=== PATIENT | female | born 1955 | race Caucasian/White ===

== ENCOUNTER 2019-05-23 21:08 | Emergency (ER) | payer BC ==
[~2019-05-23] VITALS: Ht 160 cm; Wt 82.6 kg
[2019-05-23 21:18] VITALS: BP 140/80
--- NOTE | 2019-05-23 21:18 | NUR ---
ED Nurse Note: pt walked in to ED C/O hitting her left arm to a coffee table. laceration noted. No active bleeding present. Pain 5/10. pt is alert x4.
--- NOTE | 2019-05-23 21:41 | Emergency Room Report ---
History of Present Illness General Chief Complaint: Laceration Source: Patient Present Illness HPI This is a 63-year-old female who is right-hand dominant. She presents with chief complaint of left arm laceration. At 3 AM last night, she went to the bathroom and misjudged the bed and sat down. She ended up falling and hitting her left arm on the coffee table. Sustained abrasion and a laceration to left elbow area. Some mild pain. No nausea no vomiting. No other injury. Did not pass out. Tetanus shots was 3 months ago. Allergies: Coded Allergies: CODEINE (Verified Allergy, Unknown, 05/23/19) Patient History Past Medical History: see triage record, old chart reviewed Past Surgical History: other Pertinent Family History: none Social History: Reports: smoking Last Menstrual Period: 15 YEARS Now: No Immunizations: UTD Reviewed Nursing Documentation: PMH: Agreed; PSxH: Agreed Nursing Documentation-PMH Past Medical History: No History, Except For Review of Systems Eye: Denies: eye pain, blurred vision ENT: Denies: ear pain, nose congestion, throat swelling Respiratory: Denies: cough, shortness of breath Cardiovascular: Denies: chest pain, palpitations Gastrointestinal: Denies: abdominal pain, diarrhea, nausea, vomiting Musculoskeletal: Reports: muscle pain; Denies: back pain, joint pain Skin: Denies: rash Neurological: Denies: headache, numbness Endocrine: Denies: increased thirst, increased urine Hematologic/Lymphatic: Denies: easy bruising All Other Systems: negative except mentioned in HPI Physical Exam Vital Signs Date Time Temp Pulse Resp B/P (MAP) Pulse Ox O2 Delivery O2 Flow Rate FiO2 05/23/19 21:11 97.9 91 16 144/81 (102) 96 Room Air Vitals unremarkable Sp02 EP Interpretation: reviewed, normal General Appearance: well appearing, no apparent distress, alert Head: normocephalic, atraumatic Eyes: bilateral eye PERRL, bilateral eye EOMI ENT: hearing grossly normal, normal pharynx Neck: full range of motion, supple, no meningismus Respiratory: chest non-tender, lungs clear, normal breath sounds Cardiovascular #1: regular rate, rhythm, no murmur Gastrointestinal: normal bowel sounds, non tender, no mass, no organomegaly, no bruit, non-distended Musculoskeletal: back normal, gait/station normal, normal range of motion, other - Left forearm: Patient with long abrasion to the posterior part of her proximal forearm and mid forearm. At the proximal part there is a 1 cm laceration. There is contused tissue. Full range of motion of the elbow. Psychiatric: mood/affect normal Procedures Laceration/Wound Repair Laceration/Wound Repair : Consent: Verbal Wound Location: upper extremity Wound's Depth, Shape: irregular, contused tissue Wound Length (cm): 1 Wound Explored: clean Irrigated w/ Saline (ccs): 500 Betadine Prep?: Yes Anesthesia: 1% Lidocaine Volume Anesthetic (ccs): 2 Wound Repaired With: sutures Suture Size/Type: 5:0, other - vicryl Number of Sutures: 2 Patient Tolerated: Well Complications: None Medical Decision Making Diagnostic Impression: Primary Impression: Forearm abrasion Qualified Codes: S50.812A - Abrasion of left forearm, initial encounter Additional Impression: Forearm laceration Qualified Codes: S51.812A - Laceration without foreign body of left forearm, initial encounter ER Course Patient with soft tissue injury. No fracture dislocation. No foreign body. Will discharge home. Last Vital Signs Date Time Temp Pulse Resp B/P (MAP) Pulse Ox O2 Delivery O2 Flow Rate FiO2 05/23/19 21:18 98.1 76 19 140/80 98 Room Air Status: improved Disposition: HOME, SELF-CARE Condition: Stable Patient Instructions: Laceration Care, Adult Additional Instructions: Follow-up with your doctor in 7 days. Suture will fall off. Return if worse. Valente Romero MD May 23, 2019 21:41
[2019-05-23] MEDS ORDERED: Neosporin Oint Ud Pkt TOPIC ONE (21:45)
--- NOTE | 2019-05-23 21:46 | NUR ---
ED Nurse Note: pt received stitched by MELINDA. applied neosporin and covered with dry dressing.
[2019-05-23 22:02] VITALS: BP 128/76
--- NOTE | 2019-05-23 22:02 | NUR ---
ER DISCHARGE NOTE: Patient is cleared to be discharged per ERMD, pt is aox4, on room air, with stable vital signs. pt was given dc instructions, pt was able to verbalize understanding, pt id band removed without complications. pt is able to ambulate with steady gait. pt took all belongings.
== END 2019-05-23 22:02 | disposition home or self-care (01) ==
LOC: EMR 21:27
DX: S51.812A Laceration without foreign body of left forearm, initial encounter (principal); F17.200 Nicotine dependence, unspecified, uncomplicated; Z88.6 Allergy status to analgesic agent; W01.190A Fall on same level from slipping, tripping and stumbling with subsequent striking against furniture, initial encounter; Y92.009 Unspecified place in unspecified non-institutional (private) residence as the place of occurrence of the external cause
CPT/HCPCS: 99283